=== PATIENT | female | born 1980 | race Caucasian/White ===

== ENCOUNTER 2021-01-17 12:19 | Emergency (ER) | payer MEDICAID ==
--- NOTE | 2021-01-17 13:01 | EDM.PDOC ---
ED HPI GENERAL MEDICAL PROBLEM - General Chief Complaint: ENT Problem Stated Complaint: POSSIBLE DRY SOCKET Time Seen by Provider: 01/17/21 12:40 Source of Information: Reports: Patient History Limitations: Reports: No Limitations - History of Present Illness INITIAL COMMENTS - FREE TEXT/NARRATIVE: 40-year-old female had a dental extraction 4 days ago, was doing well the first 48 hours but the last 2 days has had marked increased pain. No inflammation or significant drainage from the surgical site. Onset: Gradual Duration: Day(s): (Pain is worsened over the last 2 days) Location: Reports: Other (Right mandible) Associated Symptoms: Reports: No Other Symptoms. Denies: Fever/Chills, Headaches Right Upper Jaw Pain Score (Numeric/FACES): 5 - Related Data Allergies Allergy/AdvReac Type Severity Reaction Status Date / Time amoxicillin Allergy Hives Verified 01/17/21 13:04 clarithromycin [From Biaxin] Allergy Rash Verified 01/17/21 13:04 tramadol [From Ultram] Allergy Rash Verified 01/17/21 13:04 Home Meds: Home Meds ALPRAZolam [Xanax] 0.25 mg PO PRN 01/17/21 [History] PARoxetine HCl [Paxil] 40 mg PO 01/17/21 [History] buPROPion HCL [Bupropion HCl Sr] 200 mg PO 01/17/21 [History] Social & Family History - Tobacco Use Tobacco Use Status *Q: Current Every Day Tobacco User Years of Tobacco use: 10 Packs/Tins Daily: 0.2 ED ROS ENT - Review of Systems Review Of Systems: See Below Constitutional: Reports: Malaise. Denies: Fever, Chills HEENT: Reports: Dental Pain Respiratory: Denies: Shortness of Breath, Cough GI/Abdominal: Reports: No Symptoms Skin: Reports: No Symptoms. Denies: Erythema Neurological: Reports: No Symptoms ED EXAM, ENT - Physical Exam Exam: See Below Exam Limited By: No Limitations General Appearance: Alert, No Apparent Distress, Other Mouth/Throat: Other (Patient does have an extracted right upper canine with a significantly deep socket which is likely a dry socket) Head: Atraumatic Respiratory/Chest: No Respiratory Distress Course - Vital Signs Last Recorded V/S: Last Vital Signs Temp 96.7 F L 01/17/21 12:40 Pulse 96 01/17/21 12:33 Resp 16 01/17/21 12:33 BP 133/98 H 01/17/21 12:33 Pulse Ox 98 01/17/21 12:33 - Re-Assessments/Exams Free Text/Narrative Re-Assessment/Exam: 01/17/21 14:22 Patient was given 10 hydrocodone to use for extra pain control, and encouraged to cover the area with either gauze or a teabag until Tuesday. Also placed on clindamycin 300 mg 3 times a day for the next 5 days. I strongly encouraged her to call the dentist on Tuesday for recheck if not improving satisfactorily. Departure - Departure Time of Disposition: 13:21 Disposition: Home, Self-Care 01 Clinical Impression: Dry tooth socket - Discharge Information Instructions: Dental Dry Socket, [id number] Referrals: PCP,None [Primary Care Provider] - Forms: ED Department Discharge Care Plan Goals: Keep extraction site covered until Tuesday, and call the dental office if not improving satisfactorily. Continue with ibuprofen and add stronger pain medication if needed along with the antibiotic as prescribed until rechecked by the dentist. Sepsis Event Note (ED) - Focused Exam Vital Signs: Vital Signs Temp Pulse Resp BP Pulse Ox 01/17/21 12:40 96.7 F L 01/17/21 12:33 96 16 133/98 H 98
== END 2021-01-17 13:21 | disposition home or self-care (01) ==
LOC: JP.ED 12:19
DX: M27.3 Alveolitis of jaws (principal); Z88.0 Allergy status to penicillin; Z88.5 Allergy status to narcotic agent; Z88.1 Allergy status to other antibiotic agents; Z72.0 Tobacco use
CPT/HCPCS: 99282

== ENCOUNTER 2021-09-20 17:57 | Emergency (ER) | payer MEDICAID | END 2021-09-20 21:40 | disposition home or self-care (01) | LOC: JP.ED 17:57 | DX: S89.92XA Unspecified injury of left lower leg, initial encounter (principal); M71.562 Other bursitis, not elsewhere classified, left knee; Z88.0 Allergy status to penicillin; Z88.1 Allergy status to other antibiotic agents; W01.198A Fall on same level from slipping, tripping and stumbling with subsequent striking against other object, initial encounter | CPT/HCPCS: 73562-26-LT; 73562-LT; 99283 ==

== ENCOUNTER 2022-03-05 07:22 | Day surgery (SDC) | payer MEDICAID ==
[~2022-03-05 07:22] MED LIST: Midazolam 1 MG/ML 2 ML SDV ONE; Propofol 200 MG/20 ML SDV ONE; fentaNYL 100 MCG/2 ML SDV ONE
[2022-03-05] MEDS ORDERED: Lactated Ringers 1,000 ML IV SCH (08:00)
[2022-03-05] MEDS ORDERED: Propofol 200 MG/20 ML SDV ONE (08:37)
== END 2022-03-05 10:29 | disposition home or self-care (01) ==
LOC: JP.SDS 07:22
PROVIDERS: ATTEND Student in an Organized Health Care Education/Training Program
DX: K63.5 Polyp of colon (principal); K62.1 Rectal polyp; K21.00 Gastro-esophageal reflux disease with esophagitis, without bleeding; K29.50 Unspecified chronic gastritis without bleeding; K31.7 Polyp of stomach and duodenum; K58.9 Irritable bowel syndrome, unspecified; F41.9 Anxiety disorder, unspecified; F32.A Depression, unspecified; E66.9 Obesity, unspecified; Z68.41 Body mass index [BMI] 40.0-44.9, adult; Z88.0 Allergy status to penicillin; Z88.1 Allergy status to other antibiotic agents; Z88.5 Allergy status to narcotic agent; Z79.899 Other long term (current) drug therapy
CPT/HCPCS: 43239; 45380; 88305; J2250; J2704; J3010; J7120

== ENCOUNTER 2022-03-31 08:09 | Day surgery (SDC) | payer MEDICAID ==
[~2022-03-31 08:09] MED LIST changes: +Dexamethasone 4 MG/ML SDV ONE; +Glycopyrrolate 0.2 MG/ML 5 ML MDV ONE; -Midazolam 1 MG/ML 2 ML SDV ONE; +Neostigmine Methylsulfate 1 MG/ML 5 ML Syringe ONE; +Ondansetron 4 MG/2 ML SDV ONE; +Rocuronium 50 MG/5 ML Vial ONE; +Succinylcholine 200 MG/10 ML MDV ONE; -fentaNYL 100 MCG/2 ML SDV ONE; +fentaNYL 250 MCG/5 ML SDV ONE
[2022-03-31] MEDS ORDERED: Indocyanine Green 25 MG SDV IV ONE (08:45)
[2022-03-31] MEDS ORDERED: Acetaminophen 500 MG Tab PO ONE (09:00)
[2022-03-31] MEDS ORDERED: Sodium Chloride 0.9% 1,000 ML IV SCH (09:00)
[2022-03-31] MEDS ORDERED: Bupivacaine 0.5%/EPINEPHrine 1:200,000 50 ML MDV ONE (09:09)
[2022-03-31 09:11] LABS: ESTIMATED GFR 83 mL/min (>60)
[2022-03-31] MEDS ORDERED: metroNIDAZOLE/Normal Saline 500 MG in Premix Bag 1 BAG IV ONE (10:00)
[2022-03-31] MEDS ORDERED: fentaNYL 250 MCG/5 ML SDV ONE (10:47)
[2022-03-31] MEDS ORDERED: Labetalol 20 MG/4 ML Syringe ONE (11:10)
[2022-03-31] MEDS ORDERED: fentaNYL 50 MCG/ML SDV IVPUSH ONE (12:16)
[2022-03-31] MEDS ORDERED: hydrOXYzine HCL 100 MG/2 ML SDV IM ONE (12:16)
[2022-03-31] MEDS ORDERED: Acetaminophen/HYDROcodone 325-5 MG Tab PO PRN (12:53)
[2022-03-31] MEDS ORDERED: Ondansetron 4 MG/2 ML SDV IVPUSH SCH (13:00)
== END 2022-03-31 15:20 | disposition home or self-care (01) ==
LOC: JP.SDS 08:09
PROVIDERS: ATTEND Student in an Organized Health Care Education/Training Program
DX: K81.1 Chronic cholecystitis (principal); K82.8 Other specified diseases of gallbladder; F41.9 Anxiety disorder, unspecified; K21.9 Gastro-esophageal reflux disease without esophagitis; K58.9 Irritable bowel syndrome, unspecified; Z87.891 Personal history of nicotine dependence
CPT/HCPCS: 36415; 47562; 80053; 84703; 88304; A9270; J0330; J1100; J2405; J2704; J2710; J3010; J3410; J3490; J7030

== ENCOUNTER 2024-12-20 06:22 | Day surgery (SDC) | payer OTHER ==
[2024-12-20] MEDS ORDERED: fentaNYL 50 MCG/ML SDV ONE (07:09)
[2024-12-20] MEDS ORDERED: Midazolam 1 MG/ML 2 ML SDV ONE (07:09)
[2024-12-20] MEDS ORDERED: Propofol 200 MG/20 ML SDV ONE ×2 (07:09→07:51)
[2024-12-20] MEDS: Lactated Ringers 1,000 ML IV SCH (07:17)
== END 2024-12-20 09:21 | disposition home or self-care (01) ==
LOC: JP.SDS 06:22
PROVIDERS: ATTEND Surgery
DX: K21.9 Gastro-esophageal reflux disease without esophagitis (principal); K22.89 Other specified disease of esophagus; K44.9 Diaphragmatic hernia without obstruction or gangrene; K29.70 Gastritis, unspecified, without bleeding; E66.9 Obesity, unspecified; Z88.1 Allergy status to other antibiotic agents; Z88.8 Allergy status to other drugs, medicaments and biological substances; Z88.0 Allergy status to penicillin; Z68.30 Body mass index [BMI] 30.0-30.9, adult; Z87.891 Personal history of nicotine dependence; Z79.899 Other long term (current) drug therapy
CPT/HCPCS: 00731; 43239; 87081; J2250; J2704; J3010; J7120; 88305